=== PATIENT | female | born 1970 | race Caucasian/White ===

== ENCOUNTER 2018-03-20 14:30 | Emergency (ER) | payer BC, OTHER ==
[~2018-03-20] VITALS: Ht 170.2 cm; Wt 63.5 kg
[2018-03-20] MEDS ORDERED: NS IV 1000 ML 1,000 ML IV SCH (14:49)
[2018-03-20 14:56] LABS: BASOPHILS % (AUTO) 0 % (0-10); EOSINOPHILS # (AUTO) 0.1 10^3/uL (0.0-0.3); EOSINOPHILS % (AUTO) 2 % (0-10); HEMATOCRIT 33 % (35-52); HEMOGLOBIN 11.8 G/DL (11.5-16.0); LYMPHOCYTES # (AUTO) 2.6 X 10^3 (1.0-4.0); LYMPHOCYTES % (AUTO) 35 % (12-44); MEAN CORPUSCULAR HEMOGLOBIN 31 PG (25-34); MEAN CORPUSCULAR HGB CONC 35 G/DL (32-36); MEAN CORPUSCULAR VOLUME 88 FL (80-99); MEAN PLATELET VOLUME 10.6 FL (7.4-10.4); MONOCYTES # (AUTO) 0.5 X 10^3 (0.0-1.0); MONOCYTES % (AUTO) 6 % (0-12); NEUTROPHILS # (AUTO) 4.3 X 10^3 (1.8-7.8); NEUTROPHILS % (AUTO) 57 % (42-75); PLATELET COUNT 153 10^3/uL (130-400); WHITE BLOOD COUNT 7.6 10^3/uL (4.3-11.0)
--- NOTE | 2018-03-20 14:56 | ED General ---
General Stated Complaint: ANXIETY Source of Information: Patient, EMS, Spouse Exam Limitations: No Limitations History of Present Illness Date Seen by Provider: Mar 20, 2018 Time Seen by Provider: 14:48 Initial Comments Patient presents to ER by [facility] with chief complaint that she was heading home from the [place] and was feeling weird today and had to dross puller the side of the road because she was freezing up and couldn't get her hands extend away from her chest. She called her so he called EMS and they picked her up around [place]. EMS reports that it took the patient some time to get the car door open because it was locked and she was having difficulty moving. Without first. She was having an anxiety attack and she does have a history of panic disorder but the patient says she has not needed anything for that long time and said this is different she was physically unable to move because her hands were being held and spasm. She feels like her whole body is tight and spasmodic. She says no one else ate anything she ate had any similar symptoms. She feels weak and tight all over stress in her back shoulders and upper extremity and legs. She says she thinks she had 4 beers yesterday throughout the day and none today. She had an anti-inflammatory that she got from a family member this morning but she's taken it before from him and never had any problems with it. She did not eat anything that was dubious or left out for very long. She was not drinking from any unsafe water source. She says about a year ago she had seen a facility assistant in [place] and was told she had hyperthyroid and was taken off her Synthroid that she been on for several years. She was told to follow-up in one year but she hasn't made that appointment yet. She had not had any problems with her thyroid since then that she is aware of. She never been told she had Graves or Tash's or other disorder. She feels like a gripping belt-like pressure underneath her breasts going around her rib cage. She feels very difficult to breathe like she is breathing through a straw. Patient denies having any wounds on her body for the past week. She says her last tetanus shot was greater than 5 years. Allergies and Home Medications Allergies Coded Allergies: No Known Drug Allergies (Unverified , 03/20/18) Patient Home Medication List Home Medication List Reviewed: Yes Review of Systems Constitutional: No chills, No diaphoresis EENTM: No hearing loss, No ear pain Respiratory: No cough, No short of breath Cardiovascular: No chest pain, No edema Gastrointestinal: No abdominal pain, No constipation, No diarrhea Genitourinary: No discharge, No dysuria Past [id number]-[id number] Hx Patient Social History Alcohol Use: Occasionally Uses Alcohol Beverage of Choice: Beer Recreational Drug Use: No Smoking Status: Never a Smoker Recent Foreign Travel: No Contact w/Someone Who Travel: No Physical Exam Vital Signs Vital Signs - First Documented 03/20/18 14:34 Temp 98.0 Pulse 96 Resp 18 B/P (MAP) 100/67 (78) O2 Delivery Room Air Capillary Refill : Height, Weight, BMI Height: '" Weight: lbs. oz. kg; BMI Method: General Appearance: WD/WN, Anxious, Mild Distress Eyes: Bilateral Eye Normal Inspection, Bilateral Eye PERRL, Bilateral Eye EOMI HEENT: PERRL/EOMI, Normal ENT Inspection, Pharynx Normal, Moist Mucous Membranes Neck: Full Range of Motion, Non Tender, Supple Respiratory: Chest Non Tender, Lungs Clear, Normal Breath Sounds, No Accessory Muscle Use, No Respiratory Distress Cardiovascular: Regular Rate, Rhythm, No Edema, Normal Peripheral Pulses Gastrointestinal: Normal Bowel Sounds, No Organomegaly, Non Tender, Soft Extremity: Normal Capillary Refill, No Pedal Edema Neurologic/Psychiatric: Alert, Oriented x3; No Depressed Affect, No Disoriented , No Facial Droop, No Motor Weakness, No Sensory Deficit; Other (negative for Babinski reflex) Reflexes: 3+ Bicep (R), 3+ Bicep (L), 3+ Tricep (R), 3+ Tricep (L), 3+ Knee (R) , 3+ Knee (L) Skin: Normal Color, Warm/Dry, Other (No recent wounds seen. ) Progress/Results/Core Measures Suspected Sepsis SIRS Temperature: Pulse: Respiratory Rate: Laboratory Tests 03/20/18 14:46: White Blood Count 7.6 Blood Pressure / Mean: Laboratory Tests 03/20/18 14:46: Creatinine 0.78, Platelet Count 153, Total Bilirubin 0.6 Results/Orders Lab Results Laboratory Tests Test 03/20/18 14:46 03/20/18 16:00 Range/Units White Blood Count 7.6 4.3-11.0 10^3/uL Red Blood Count 3.80 L 4.35-5.85 10^6/uL Hemoglobin 11.8 11.5-16.0 G/DL Hematocrit 33 L 35-52 % Mean Corpuscular Volume 88 80-99 FL Mean Corpuscular Hemoglobin 31 25-34 PG Mean Corpuscular Hemoglobin Concent 35 32-36 G/DL Red Cell Distribution Width 12.0 10.0-14.5 % Platelet Count 153 130-400 10^3/uL Mean Platelet Volume 10.6 H 7.4-10.4 FL Neutrophils (%) (Auto) 57 42-75 % Lymphocytes (%) (Auto) 35 12-44 % Monocytes (%) (Auto) 6 0-12 % Eosinophils (%) (Auto) 2 0-10 % Basophils (%) (Auto) 0 0-10 % Neutrophils # (Auto) 4.3 1.8-7.8 X 10^3 Lymphocytes # (Auto) 2.6 1.0-4.0 X 10^3 Monocytes # (Auto) 0.5 0.0-1.0 X 10^3 Eosinophils # (Auto) 0.1 0.0-0.3 10^3/uL Basophils # (Auto) 0.0 0.0-0.1 10^3/uL Sodium Level 139 135-145 MMOL/L Potassium Level 3.4 L 3.6-5.0 MMOL/L Chloride Level 104 98-107 MMOL/L Carbon Dioxide Level 19 L 21-32 MMOL/L Anion Gap 16 H 5-14 MMOL/L Blood Urea Nitrogen 16 7-18 MG/DL Creatinine 0.78 0.60-1.30 MG/DL Estimat Glomerular Filtration Rate > 60 BUN/Creatinine Ratio 21 Glucose Level 129 H 70-105 MG/DL Calcium Level 9.5 8.5-10.1 MG/DL Phosphorus Level 1.1 L 2.3-4.7 MG/DL Magnesium Level 1.8 1.8-2.4 MG/DL Total Bilirubin 0.6 0.1-1.0 MG/DL Aspartate Amino Transf (AST/SGOT) 23 5-34 U/L Alanine Aminotransferase (ALT/SGPT) 19 0-55 U/L Alkaline Phosphatase 60 40-136 U/L Troponin I < 0.30 <0.30 NG/ML Total Protein 6.8 6.4-8.2 GM/DL Albumin 4.4 3.2-4.5 GM/DL Thyroid Stimulating Hormone (TSH) 0.54 0.35-4.94 UIU/ML Serum Alcohol < 10 <10 MG/DL Urine Color YELLOW Urine Clarity SLIGHTLY CLOUDY Urine pH 8 5-9 Urine Specific [place] 1.015 L 1.016-1.022 Urine Protein NEGATIVE NEGATIVE Urine Glucose (UA) NEGATIVE NEGATIVE Urine Ketones 3+ H NEGATIVE Urine Nitrite NEGATIVE NEGATIVE Urine Bilirubin NEGATIVE NEGATIVE Urine Urobilinogen NORMAL NORMAL MG/DL Urine Leukocyte Esterase NEGATIVE NEGATIVE Urine RBC (Auto) NEGATIVE NEGATIVE Urine RBC RARE /HPF Urine WBC NONE /HPF Urine Squamous Epithelial Cells 2-5 /HPF Urine Renal Epithelial Cells NONE /HPF Urine Crystals PRESENT H /LPF Urine Amorphous Sediment MOD MARLENA PHOSPHATE H /LPF Urine Bacteria NEGATIVE /HPF Urine Casts NONE /LPF Urine Mucus NEGATIVE /LPF Urine Culture Indicated NO Urine Test NEGATIVE NEGATIVE Urine Opiates Screen NEGATIVE NEGATIVE Urine Oxycodone Screen NEGATIVE NEGATIVE Urine Methadone Screen NEGATIVE NEGATIVE Urine Propoxyphene Screen NEGATIVE NEGATIVE Urine Barbiturates Screen NEGATIVE NEGATIVE Ur Tricyclic Antidepressants Screen NEGATIVE NEGATIVE Urine Phencyclidine Screen NEGATIVE NEGATIVE Urine Amphetamines Screen NEGATIVE NEGATIVE Urine Methamphetamines Screen NEGATIVE NEGATIVE Urine Benzodiazepines Screen NEGATIVE NEGATIVE Urine Cocaine Screen NEGATIVE NEGATIVE Urine Cannabinoids Screen NEGATIVE NEGATIVE My Orders Orders - BENJAMIN BENOIT Alcohol (03/20/18 14:45) Cbc With Automated Diff (03/20/18 14:45) Comprehensive Metabolic Panel (03/20/18 14:45) Drug Screen Stat (Urine) (03/20/18 14:45) Hcg,Qualitative Urine (03/20/18 14:45) Magnesium (03/20/18 14:45) Thyroid Stimulating Hormone (03/20/18 14:45) Troponin I (03/20/18 14:45) Ua Culture If Indicated (03/20/18 14:45) Phosphorus (03/20/18 14:45) Chest 1 View, Ap/Pa Only (03/20/18 14:45) Saline Lock/Iv-Start (03/20/18 14:45) Ekg Tracing (03/20/18 14:45) Ns Iv 1000 Ml (Sodium Chloride 0.9%) (03/20/18 14:49) Ondansetron Injection (Zofran Injectio (03/20/18 15:15) Orphenadrine Injection (Norflex Injectio (03/20/18 15:45) Medications Given in ED Current Medications Medications Dose Ordered Sig/Claeb Route Start Time Stop Time Status Last Admin Dose Admin Ondansetron HCl 4 mg ONCE ONCE IVP 03/20/18 15:15 03/20/18 15:16 DC 03/20/18 15:26 4 MG Orphenadrine Citrate 60 mg ONCE ONCE IV 03/20/18 15:45 03/20/18 15:46 DC 03/20/18 15:43 60 MG Vital Signs/I&O 03/20/18 03/20/18 14:34 16:32 Temp 98.0 Pulse 96 55 Resp 18 18 B/P (MAP) 100/67 (78) 112/60 (77) O2 Delivery Room Air Room Air Capillary Refill : Progress Note #1: Time: 15:07 Progress Note Patient presents with carpopedal spasms and tetany with mild hyperreflexia globally but symmetric. As she is laying on the bed getting some fluids will check her electrolytes and urine. We have not given her anything and already her symptoms have improved significantly to the point where now she can move her arms and legs but she is just having a little tightness in her hands. Fairly consistent with panic disorder. Since is improving so rapidly a toxin or tetany from Clostridium is very unlikely. 1600: Gave her some Norflex to see if that would help her improve and she still acting rigid but not getting any worse. He may try some benzos. Her white count is not elevated and she's not showing any autonomic dysreflexia which might be seen with a toxin exposure. She does not have QTC prolongation nor does she have hypocalcemia. We do not have the ability to run an ionized calcium. Still possible psychosomatic secondary to panic disorder and KENY. Progress Note #2: Time: 17:30 Progress Note Patient was certainly having a tetanus episode with carpopedal spasms consistent with either hypocalcemia or panic disorder and her calcium was revealed to be normal. Her thyroid was in normal limits. Cannot check her parathyroid the ER. She started to resolve even before we gave her anything but after getting the muscle relaxant she completely resolved and her deep tendon reflexes are now 2 out of 4 normal symmetric and bilateral. She got up and walked to the bathroom and back without any assistance and says she is no longer having any symptoms. At this time we have offered her an overnight stay for observation in the hospital versus following up with her primary care doctor for further evaluation and she has decided to go home and be with her primary care doctor next week. She has cyclobenzaprine already and we have encouraged her to use it as necessary. Timing of her story seems to indicate that the hyperventilation came after the tetanus episode which is not clearly panic attack but that still fairly high on the differential. ECG Initial ECG Impression Date: Mar 20, 2018 Initial ECG Impression Time: 15:01 Initial ECG Rate: 61 Initial ECG Rhythm: Normal Sinus Initial ECG Intervals: Normal Initial ECG Impression: Normal Initial ECG Comparisson: No Previous ECG Available Comment No ST elevation or depression Diagnostic Imaging Diagonstic Imaging: Xray (1v) Plain Films/CT/US/NM/MRI: chest Comments VIA [facility]. [place], [place] NAME: ALLAN HUITRON [facility] REC#: [id number] PT STATUS: REG ER : 1970 PHYSICIAN: BENJAMIN BENOIT MD ADMIT DATE: 03/20/18/ER Draft Date of Exam:03/20/18 CHEST 1 VIEW, AP/PA ONLY INDICATION: Altered mental status. Confusion. Possible seizure while driving. Dizziness. Chest pain. EXAMINATION: Portable chest was obtained. FINDINGS: The lungs are well-aerated and clear. Heart is not enlarged. There is no pulmonary edema. No pneumothorax or pleural effusion. No bony abnormality. IMPRESSION: Normal portable chest. Dictated on workstation # [id number] Dict: 03/20/18 1533 Trans: 03/20/18 1536 [facility] [id number] Interpreted by: SHILPI HERRERA MD Electronically signed by: Reviewed: Reviewed by Me Departure Impression Primary Impression: Sujit Additional Impression: History of anxiety disorder Disposition: 01 HOME, SELF-CARE Condition: Improved Departure-Patient Inst. Decision time for Depature: 17:30 Referrals: NO,LOCAL PHYSICIAN (PCP) Primary Care Physician Patient Instructions: Panic Disorder (DC) Add. Discharge Instructions: Refer to the handout for some more information on panic disorders. If you begin to have another spell please take one of her cyclobenzaprine as prescribed. Tomorrow morning please call your primary care physician and request an appointment for further workup and evaluation. If you have difficulty breathing you should return to the nearest ER. BENJAMIN BENOIT Mar 20, 2018 14:56
[2018-03-20] MEDS ORDERED: LIFI1DRO (15:02)
[2018-03-20] MEDS ORDERED: ESTR2TAB (15:02)
[2018-03-20] MEDS ORDERED: ONDANSETRON 4 MG/2 ML (SDV) Z0FRAN IVP ONE (15:15)
[2018-03-20 15:22] LABS: ALANINE AMINOTRANSFERASE 19 U/L (0-55); ALBUMIN 4.4 GM/DL (3.2-4.5); ALKALINE PHOSPHATASE 60 U/L (40-136); BILIRUBIN,TOTAL 0.6 MG/DL (0.1-1.0); BUN/CREATININE RATIO 21; CALCIUM 9.5 MG/DL (8.5-10.1); CARBON DIOXIDE 19 MMOL/L (21-32); CHLORIDE 104 MMOL/L (98-107); CREATININE SERUM 0.78 MG/DL (0.60-1.30); GFR ESTIMATED > 60; GLUCOSE 129 MG/DL (70-105); MAGNESIUM 1.8 MG/DL (1.8-2.4); PHOSPHORUS 1.1 MG/DL (2.3-4.7); POTASSIUM 3.4 MMOL/L (3.6-5.0); SODIUM 139 MMOL/L (135-145); TOTAL PROTEIN 6.8 GM/DL (6.4-8.2)
--- NOTE | 2018-03-20 15:36 | Diagnostic Imaging Report ---
INDICATION: Altered mental status. Confusion. Possible seizure while driving. Dizziness. Chest pain. EXAMINATION: Portable chest was obtained. FINDINGS: The lungs are well-aerated and clear. Heart is not enlarged. There is no pulmonary edema. No pneumothorax or pleural effusion. No bony abnormality. IMPRESSION: Normal portable chest. Dictated by: Dictated on workstation # [id number]
[2018-03-20] MEDS ORDERED: ORPHENADRINE 60 MG/2 ML (NORFLEX) AMP IV ONE (15:45)
[2018-03-20 16:06] LABS: BILIRUBIN,URINE NEGATIVE (NEGATIVE); CLARITY,URINE SLIGHTLY CLOUDY; COLOR,URINE YELLOW; GLUCOSE, URINE (UA) NEGATIVE (NEGATIVE); KETONES,URINE 3+ (NEGATIVE); LEUKOCYTE ESTERASE ,URINE NEGATIVE (NEGATIVE); NITRITE,URINE NEGATIVE (NEGATIVE); PH,URINE 8 (5-9); PROTEIN,URINE NEGATIVE (NEGATIVE); UROBILINOGEN,URINE NORMAL (NORMAL)
[2018-03-20 16:12] LABS: HCG,QUALITATIVE URINE NEGATIVE (NEGATIVE)
[2018-03-20 16:20] LABS: AMORPHOUS SEDIMENT,UR MOD AMOR PHOSPHATE /LPF; BACTERIA,URINE NEGATIVE /HPF; RBC,URINE RARE /HPF
[2018-03-20 16:26] LABS: AMPHETAMINE SCREEN, URINE NEGATIVE (NEGATIVE); BARBITURATE SCREEN URINE NEGATIVE (NEGATIVE); BENZODIAZEPINES SCREEN URINE NEGATIVE (NEGATIVE); CANNABINOID SCREEN, URINE NEGATIVE (NEGATIVE); COCAINE SCREEN URINE NEGATIVE (NEGATIVE); METHADONE STAT NEGATIVE (NEGATIVE); METHAMPHETAMINE SCREEN URINE S NEGATIVE (NEGATIVE); OPIATE SCREEN URINE NEGATIVE (NEGATIVE); OXYCODONE STAT NEGATIVE (NEGATIVE); PROPOXYPHENE STAT NEGATIVE (NEGATIVE); TRICYCLIC ANTIDEPRESSANTS SCRE NEGATIVE (NEGATIVE)
[2018-03-20 16:32] VITALS: BP 112/60
[2018-03-20 17:51] VITALS: BP 109/55
== END 2018-03-20 17:51 | disposition home or self-care (01) ==
LOC: EDUNIT# 14:30 → ER 14:32
DX: F41.9 Anxiety disorder, unspecified (principal); R29.0 Tetany
CPT/HCPCS: 36415; 71045; 80053; 80306; 80320; 81000; 83735; 84100; 84443; 84484; 84703; 85025; 93005; 96361; 96374; 96375